=== PATIENT | female | born 1940 | race Caucasian/White ===

== ENCOUNTER 2019-11-23 14:56 | Inpatient (IN) | payer MEDICARE ==
[~2019-11-23] VITALS: Ht 167.6 cm; Wt 70.8 kg
[2019-11-23] MEDS ORDERED: ATOR20TA PO (15:17)
[2019-11-23] MEDS ORDERED: NICO-671 TP (15:17)
[2019-11-23] MEDS ORDERED: DIVA250T PO (15:17)
[2019-11-23] MEDS ORDERED: ACET-2154 PO (15:17)
[2019-11-23 15:35] LABS: BASOPHILS % (AUTO) 0.4 % (0.0-2.0); EOSINOPHILS # (AUTO) 0.3 K/uL (0.0-0.7); EOSINOPHILS % (AUTO) 3.2 % (0.0-7.0); HEMATOCRIT 36.5 % (31.2-41.9); HEMOGLOBIN 12.3 g/dL (10.9-14.3); LYMPHOCYTES # (AUTO) 2.4 K/uL (20.0-40.0); LYMPHOCYTES % (AUTO) 25.6 % (20.5-51.5); MEAN CORPUSCULAR HEMOGLOBIN 31.1 uug (24.7-32.8); MEAN CORPUSCULAR HGB CONC 34 g/dL (32.3-35.6); MEAN CORPUSCULAR VOLUME 91.9 fL (75.5-95.3); MONOCYTES # (AUTO) 0.5 K/uL (2.0-10.0); MONOCYTES % (AUTO) 5.6 % (0.0-11.0); NEUTROPHILS % (AUTO) 65.2 % (38.5-71.5); PLATELET COUNT (AUTO) 81 K/uL (179-408); RED BLOOD CELL COUNT(AUTO) 3.97 MIL/uL (3.63-4.92); WHITE BLOOD COUNT (AUTO) 9.2 K/uL (3.8-11.8)
[2019-11-23 15:41] LABS: *BILIRUBIN,URIN NEGATIVE (NEGATIVE); *BLOOD, URINE NEGATIVE (NEGATIVE); *CLARITY,URINE CLEAR (CLEAR); *COLOR,URINE YELLOW (YELLOW); *KETONES,URINE NEGATIVE (NEGATIVE); *UROBILINOGEN,URINE 0.2 E.U./dl (NORMAL); LEUKOCYTE ESTERASE ,URINE NEGATIVE (NEGATIVE); NITRITE, URINE NEGATIVE (NEGATIVE); UGLUCOSE NEGATIVE (NEGATIVE)
[2019-11-23 15:46] LABS: ALANINE AMINOTRANSFERASE 20 U/L (14-59); ALKALINE PHOSPHATASE 92 U/L (50-136); ASPARTATE AMINOTRANSFERASE 15 U/L (15-37); BILIRUBIN,DIRECT 0.1 mg/dL (0.0-0.2); BILIRUBIN,TOTAL 0.3 mg/dL (0.2-1.0); CARBON DIOXIDE 26 mmol/L (21-32); CHLORIDE 105 mmol/L (98-107); CREATININE 0.9 mg/dL (0.6-1.3); GLUCOSE 111 mg/dL (74-106); TOTAL PROTEIN, SERUM 7.4 g/dL (6.4-8.2); UREA NITROGEN, BLOOD 16 mg/dL (7-18)
[2019-11-23 15:48] LABS: ACETAMINOPHEN < 2.0 ug/mL (10-30)
[2019-11-23 15:49] LABS: ETHANOL < 3 MG/DL (0-0)
[2019-11-23 15:56] LABS: *AMPHETAMINE, URINE NEGATIVE (NEGATIVE); *BARBITURATE, URINE NEGATIVE (NEGATIVE); *CANNABINOID, URINE NEGATIVE (NEGATIVE); *COCCAINE, URINE NEGATIVE (NEGATIVE); *OPIATE, URINE NEGATIVE (NEGATIVE); *PHENCYCLIDINE SCREEN,URINE NEGATIVE (NEGATIVE)
--- NOTE | 2019-11-23 16:08 | NUR ---
Dr Burton medically cleared the pt.
--- NOTE | 2019-11-23 16:12 | NUR ---
Placed a call to CAMERA ENGINEER Logan Lopez.ETA 45 min.
[2019-11-23 16:15] LABS: BAND % (MANUAL) 2 % (0-10); EOSINOPHILS % (MANUAL) 1 % (0-8); LYMPHOCYTES % (MANUAL) 24 % (20-40); MONOCYTES % (MANUAL) 6 % (2-10); NEUTROPHILS % (MANUAL) 67 % (42-75)
[2019-11-23] MEDS ORDERED: QUET25TA PO ×3 (16:29)
--- NOTE | 2019-11-23 17:03 | NUR ---
Logan Lopez LCSW at the bedside for psych eval.
[2019-11-23] MEDS ORDERED: TEMAZEPAM 7.5 MG CAPSULE PO PRN (18:30)
[2019-11-23] MEDS ORDERED: MAG HYDROX/AL HYDROX/SIMETH 30 ML LIQUID UDC PO PRN (18:30)
[2019-11-23] MEDS ORDERED: MAGNESIUM HYDROXIDE 30 ML LIQUID UDC PO PRN (18:30)
[2019-11-23] MEDS ORDERED: TEMAZEPAM 15 MG CAPSULE PO PRN (19:30)
[2019-11-23] MEDS: LORAZEPAM 1 MG TABLET PO PRN (19:37)
--- NOTE | 2019-11-23 21:00 | NUR ---
GPS: Admitted to unit earlier during day shift a 79yr.old female under the care of / in fair condition. Pt.is on a 72 hour hold for GD. Pt. was paranoid,suspicious,delusional and was unmanageable at her SNF that she was in not too long ago,per hold. Pt.presents herself as confused,disoriented,paranoid,delusional,unpredictable,anxious and agitated. Frequent re-direction and limit setting done by staff. Skin assessment/personal belongings list completed.Pt's rights and advisement given to pt. Unit rules explained. Safety emphasized. Ativan 1mg given for increased anxiety/agitation and was effective. Behavior monitoring continues.
[2019-11-23 21:58] VITALS: BP 133/79
[2019-11-24] MEDS: LORAZEPAM 1 MG TABLET PO PRN (02:32)
[2019-11-24 07:30] VITALS: BP 132/70
[2019-11-24 08:20] LABS: BILIRUBIN,TOTAL 0.3 mg/dL (0.2-1.0); CREATININE 0.8 mg/dL (0.6-1.3); POTASSIUM 4.2 mmol/L (3.5-5.1); TOTAL PROTEIN, SERUM 7.5 g/dL (6.4-8.2)
[2019-11-24] MEDS: NICOTINE 7 MG/24HR PATCH TD SCH ×2 (09:00→13:22)
--- NOTE | 2019-11-24 10:39 | NUR ---
Social Work/Firearms Report (DOJ): Formula Bottler completed and submitted a DPJ firearms report for 5150 grave disability certification. A copy of report has been placed in patient chart.
--- NOTE | 2019-11-24 10:39 | NUR ---
Social Work/Initial Discharge Plan: Patient currently resides at [facility] [address] [place] [phone] and will return upon discharge. Seasonal Sales Associate will continue to work with patient and MD to ensure a safe and proper discharge plan.
--- NOTE | 2019-11-24 10:40 | NUR ---
Social Work/APS Contact: quality worker spoke with Trinh Salas APS social media developer ([phone]). Trinh provided collateral information regarding patient's history and recent current events that led to her hospitalization. Trinh stated that she has been assigned to the patient for a while and has a pending referral for conservatorship from [facility] ([phone]). Patient has a court hearing for this proceeding on December 03, 2019. Trinh stated that prior to [facility] the patient was living on her own in a Mobile Home where she was unable to provide care for herself and multiple emergency calls were in place which ultimately led to her not being able to continue to live independently and needing a group home placement.
[2019-11-24 16:02] VITALS: BP 126/80
[2019-11-24] MEDS: DIVALPROEX 250 MG TABLET.DR PO SCH (17:31)
[2019-11-24] MEDS: QUETIAPINE FUMARATE 25 MG TABLET PO SCH (17:32)
[2019-11-24 20:20] VITALS: BP 136/78
[2019-11-24] MEDS: QUETIAPINE FUMARATE 100 MG TABLET PO SCH (21:49)
[2019-11-25 07:30] VITALS: BP 138/75
[2019-11-25] MEDS: QUETIAPINE FUMARATE 25 MG TABLET PO SCH ×2 (08:20→17:11)
[2019-11-25] MEDS: DIVALPROEX 250 MG TABLET.DR PO SCH ×2 (08:20→17:11)
[2019-11-25] MEDS: NICOTINE 7 MG/24HR PATCH TD SCH (08:24)
[2019-11-25 16:00] VITALS: BP 119/80
[2019-11-25] MEDS: LORAZEPAM 1 MG TABLET PO PRN (17:11)
--- NOTE | 2019-11-25 17:16 | NUR ---
Patient is intrusive, poor boundaries, and frequently going into other patient's rooms. Patient is anxious, restless, and agitated. Patient provided with redirection and reality orientation multiple times and is argumentative with staff. Patient provided with PO PRN Ativan. Educated about impulse control and how to appropriately communicate her needs to staff.
[2019-11-25 20:00] VITALS: BP 124/73
[2019-11-25] MEDS: QUETIAPINE FUMARATE 100 MG TABLET PO SCH (21:01)
[2019-11-26 07:30] VITALS: BP 97/76
[2019-11-26] MEDS: DIVALPROEX 250 MG TABLET.DR PO SCH ×2 (08:05→17:04)
[2019-11-26] MEDS: LORAZEPAM 1 MG TABLET PO PRN ×2 (08:06→17:04)
[2019-11-26] MEDS: NICOTINE 7 MG/24HR PATCH TD SCH (08:06)
[2019-11-26] MEDS: QUETIAPINE FUMARATE 25 MG TABLET PO SCH ×2 (08:06→17:04)
[2019-11-26 16:59] VITALS: BP 118/66
[2019-11-26 20:00] VITALS: BP 123/75
[2019-11-26] MEDS: QUETIAPINE FUMARATE 100 MG TABLET PO SCH (20:11)
[2019-11-26] MEDS: ATORVASTATIN 20 MG TABLET PO SCH (20:11)
[2019-11-27] MEDS: LORAZEPAM 1 MG TABLET PO PRN (04:30)
[2019-11-27 07:30] VITALS: BP 116/51
[2019-11-27] MEDS: QUETIAPINE FUMARATE 25 MG TABLET PO SCH ×2 (10:42→17:22)
[2019-11-27] MEDS: DIVALPROEX 250 MG TABLET.DR PO SCH ×2 (10:42→17:22)
[2019-11-27] MEDS: NICOTINE 7 MG/24HR PATCH TD SCH (10:45)
[2019-11-27 17:22] VITALS: BP 116/83
[2019-11-27 20:12] VITALS: BP 130/80
[2019-11-27] MEDS: ATORVASTATIN 20 MG TABLET PO SCH (20:32)
[2019-11-27] MEDS: QUETIAPINE FUMARATE 100 MG TABLET PO SCH (20:32)
[2019-11-28 09:20] VITALS: BP 118/67
[2019-11-28] MEDS: NICOTINE 7 MG/24HR PATCH TD SCH (09:50)
[2019-11-28] MEDS: DIVALPROEX 250 MG TABLET.DR PO SCH ×2 (09:50→17:44)
[2019-11-28] MEDS: QUETIAPINE FUMARATE 25 MG TABLET PO SCH ×2 (09:50→17:44)
[2019-11-28 16:00] VITALS: BP 122/58
[2019-11-28 20:23] VITALS: BP 138/76
[2019-11-28] MEDS: QUETIAPINE FUMARATE 100 MG TABLET PO SCH (20:52)
[2019-11-28] MEDS: ATORVASTATIN 20 MG TABLET PO SCH (20:52)
[2019-11-29 07:30] VITALS: BP 110/59
[2019-11-29] MEDS: NICOTINE 7 MG/24HR PATCH TD SCH (08:35)
[2019-11-29] MEDS: QUETIAPINE FUMARATE 25 MG TABLET PO SCH ×2 (08:35→16:26)
[2019-11-29] MEDS: DIVALPROEX 250 MG TABLET.DR PO SCH ×2 (08:35→16:26)
--- NOTE | 2019-11-29 12:22 | NUR ---
Social Work Individual Therapy Note: Ore Crusher met with patient and provided individual supportive counseling. Patient shared she is feeling "okay", however patient is often times forgetful and is currently presenting with paranoid thought such as "are you going to hurt me", or unaware of why she is being asked questions. SW provided support and will continue to remain available to patient for ongoing support.
[2019-11-29 13:00] VITALS: BP 148/82
--- NOTE | 2019-11-29 13:12 | NUR ---
Social Work/Discharge Planning: KRANTHI faxed patient's referral packet to [facility] with attention to Bertram Brown admin coordinator for review. Addendum: 11/30/19 at 1129 by DARCY MAHMOOD Bertram stated that they do not accept psych patients at this facility and are unable to accept.
[2019-11-29] MEDS: ATORVASTATIN 20 MG TABLET PO SCH (20:44)
[2019-11-29] MEDS: QUETIAPINE FUMARATE 100 MG TABLET PO SCH (20:44)
[2019-11-29] MEDS: ACETAMINOPHEN 325 MG TABLET PO PRN (20:44)
--- NOTE | 2019-11-29 22:00 | NUR ---
received to care, highly visible on unit, pleasant upon approach. remains intrusive at times, but easy to redirect. compliant with medications, and staff direction. as of 0, she appears to be asleep. no distress noted. will continue to monitor closely.
--- NOTE | 2019-11-30 06:00 | NUR ---
slept 6.5 hours, total. continues to sleep. no distress noted.
[2019-11-30 07:39] VITALS: BP 104/68
[2019-11-30] MEDS: DIVALPROEX 250 MG TABLET.DR PO SCH ×2 (08:30→17:13)
[2019-11-30] MEDS: NICOTINE 7 MG/24HR PATCH TD SCH (08:30)
[2019-11-30] MEDS: QUETIAPINE FUMARATE 25 MG TABLET PO SCH ×2 (08:30→17:13)
--- NOTE | 2019-11-30 09:00 | NUR ---
Social Work/PC Hearing Notification: Muck Hauler unable to notify anyone of patient's probable cause hearing for today due to patient not having any supportive contacts.
--- NOTE | 2019-11-30 10:44 | NUR ---
Bertram stated that they do not accept psych patients at this facility and are unable to accept. Addendum: 11/30/19 at 1129 by DARCY MAHMOOD Incorrect placement of note.
--- NOTE | 2019-11-30 10:45 | NUR ---
Social Work/Discharge Planning: KRANTHI faxed patient's referral packet to [facility] . Attention to Alicia operations manager/coordinator, Awaiting on response. Addendum: 12/02/19 at 1519 by DARCY MAHMOOD KRANTHI left a message today for Alicia to inform whether or not patient is accepted to facility or not, awaiting a call back.
--- NOTE | 2019-11-30 15:43 | NUR ---
Social Work/Discharge Planning: KRANTHI faxed patient's referral packet to [facility] [address], [place] [address] ([phone]) fax# [phone]. Attention to Jordyn admissions representative, Awaiting on response. Addendum: 12/02/19 at 1518 by DARCY MAHMOOD Spoke with Luiza the barrel builder from [facility] who stated that they cannot accept the patient to their facility due to not having any open beds.
--- NOTE | 2019-11-30 15:46 | NUR ---
Social Work/Discharge Planning: KRANTHI faxed patient's referral packet to [address] [address] ([phone]) fax# [phone]. Attention to Lori warehouse logistics coordinator, Awaiting on response. Addendum: 12/02/19 at 1523 by DARCY MAHMOOD lead supply worker spoke with Lori today who stated that they did not receive my referral faxed yesterday. A new fax # was given ([phone]). This proposal writer faxed referral packet again. Awaiting response.
[2019-11-30 16:00] VITALS: BP 127/78
[2019-11-30 20:05] VITALS: BP 138/81
[2019-11-30] MEDS: ATORVASTATIN 20 MG TABLET PO SCH (20:21)
[2019-11-30] MEDS: QUETIAPINE FUMARATE 100 MG TABLET PO SCH (20:21)
[2019-11-30] MEDS: ACETAMINOPHEN 325 MG TABLET PO PRN (21:30)
[2019-12-01 07:30] VITALS: BP 127/76
[2019-12-01] MEDS: QUETIAPINE FUMARATE 25 MG TABLET PO SCH ×2 (08:51→16:56)
[2019-12-01] MEDS: DIVALPROEX 250 MG TABLET.DR PO SCH ×2 (08:51→16:55)
[2019-12-01] MEDS: NICOTINE 7 MG/24HR PATCH TD SCH (09:07)
[2019-12-01 16:00] VITALS: BP 130/75
[2019-12-01] MEDS: ATORVASTATIN 20 MG TABLET PO SCH (20:17)
[2019-12-01] MEDS ORDERED: QUETIAPINE FUMARATE 100 MG TABLET PO SCH (21:00)
[2019-12-01] MEDS ORDERED: QUETIAPINE FUMARATE 25 MG TABLET PO SCH (21:00)
[2019-12-01 21:24] VITALS: BP 133/78
[2019-12-02 07:30] VITALS: BP 132/75
[2019-12-02] MEDS: QUETIAPINE FUMARATE 25 MG TABLET PO SCH ×2 (08:21→16:55)
[2019-12-02] MEDS: DIVALPROEX 250 MG TABLET.DR PO SCH ×2 (08:21→16:56)
[2019-12-02] MEDS: NICOTINE 7 MG/24HR PATCH TD SCH (08:21)
--- NOTE | 2019-12-02 15:49 | NUR ---
Social Work/Discharge Planning: KRANTHI faxed patient's referral packet to [facility] [address] [place] [address] ([phone]) fax# [phone]. Attention to Jared crm coordinator. Spoke with Jared who stated that she will review the referral with their DON and let this bond writer know if they can accept this patient or not.
[2019-12-02 16:34] VITALS: BP 140/81
[2019-12-02] MEDS: QUETIAPINE FUMARATE 200 MG TABLET PO SCH (20:09)
[2019-12-02] MEDS: ATORVASTATIN 20 MG TABLET PO SCH (20:09)
[2019-12-02 20:34] VITALS: BP 139/85
[2019-12-02] MEDS ORDERED: QUETIAPINE FUMARATE 100 MG TABLET PO SCH (21:00)
--- NOTE | 2019-12-03 06:29 | NUR ---
Patient slept well for a total of 5.45 hours. No complaints were made. Compliant with medications. Assisted with needs. Kept safe and comfortable.
[2019-12-03 07:30] VITALS: BP 106/71
[2019-12-03] MEDS: DIVALPROEX 250 MG TABLET.DR PO SCH ×2 (09:22→18:20)
[2019-12-03] MEDS: QUETIAPINE FUMARATE 25 MG TABLET PO SCH (09:22)
[2019-12-03] MEDS: NICOTINE 7 MG/24HR PATCH TD SCH (09:23)
[2019-12-03 15:10] VITALS: BP 127/77
[2019-12-03] MEDS: ACETAMINOPHEN 325 MG TABLET PO PRN (19:55)
[2019-12-03] MEDS: LORAZEPAM 1 MG TABLET PO PRN (19:55)
[2019-12-03 20:29] VITALS: BP 141/76
[2019-12-03] MEDS: ATORVASTATIN 20 MG TABLET PO SCH (21:04)
[2019-12-03] MEDS: QUETIAPINE FUMARATE 200 MG TABLET PO SCH (21:04)
[2019-12-04 07:30] VITALS: BP 126/78
[2019-12-04] MEDS: QUETIAPINE FUMARATE 25 MG TABLET PO SCH (08:41)
[2019-12-04] MEDS: NICOTINE 7 MG/24HR PATCH TD SCH (08:41)
[2019-12-04] MEDS: DIVALPROEX 250 MG TABLET.DR PO SCH ×2 (08:41→16:15)
[2019-12-04 16:00] VITALS: BP 127/80
[2019-12-04] MEDS: ATORVASTATIN 20 MG TABLET PO SCH (20:11)
[2019-12-04] MEDS: QUETIAPINE FUMARATE 200 MG TABLET PO SCH (20:12)
[2019-12-04 21:07] VITALS: BP 121/78
[2019-12-05 07:30] VITALS: BP 117/69
[2019-12-05] MEDS: QUETIAPINE FUMARATE 25 MG TABLET PO SCH (08:24)
[2019-12-05] MEDS: DIVALPROEX 250 MG TABLET.DR PO SCH ×2 (08:24→16:37)
[2019-12-05] MEDS: NICOTINE 7 MG/24HR PATCH TD SCH (08:25)
[2019-12-05 16:52] VITALS: BP 123/75
[2019-12-05 20:00] VITALS: BP 139/88
[2019-12-05] MEDS: ATORVASTATIN 20 MG TABLET PO SCH (20:04)
[2019-12-05] MEDS: QUETIAPINE FUMARATE 200 MG TABLET PO SCH (20:04)
[2019-12-06 07:30] VITALS: BP 128/81
[2019-12-06] MEDS: DIVALPROEX 250 MG TABLET.DR PO SCH ×2 (08:06→17:22)
[2019-12-06] MEDS: NICOTINE 7 MG/24HR PATCH TD SCH (08:06)
[2019-12-06] MEDS: QUETIAPINE FUMARATE 25 MG TABLET PO SCH (08:06)
--- NOTE | 2019-12-06 14:55 | NUR ---
Social Work/Discharge Note: Patient will be discharged to [facility] facility to [facility] [place] [address] ([phone]) via Ambulance transportation. Patient will be provided ambulance transportation at 4pm. Senior Cost Estimator spoke with [place], [facility] ([phone]) who stated patient will be accepted at facility today. Patient is alert and oriented x2-3 and is not able to plan for self-care at this time but is willing to accept care provided for her at the facility. Patient denies suicidal or homicidal ideation. Patient is aware and agreeable with discharge plans. Patient presents with normal mood and congruent affect. Patient will continue to follow-up with Psychiatrist Dr. Baumann and Division Head Dr. You at [facility]. Patient has no family or supportive contacts to be notified at this time. Addendum: 12/06/19 at 1515 by DARCY MAHMOOD Change of facility: [facility] [address] [place] [address] ([phone]) [facility] is ready to accept the patient today.
[2019-12-06 15:16] VITALS: BP 133/74
--- NOTE | 2019-12-07 12:14 | NUR ---
Social Work Note: Growth Hacker received a call from Sarah ([phone]) from [facility] and stated that they have confirmed probate conservatorship of the patient. This typewriter assembler gave Sarah the patient's discharge information.
== END 2019-12-06 19:54 | DRG 885 ==
LOC: ER 14:56 → GPS 17:54
PROVIDERS: ADMIT Psychiatry & Neurology Psychiatry; ATTEND Student in an Organized Health Care Education/Training Program
DX: F29 Unspecified psychosis not due to a substance or known physiological condition (principal); D69.59 Other secondary thrombocytopenia; E78.5 Hyperlipidemia, unspecified; R26.81 Unsteadiness on feet; F17.200 Nicotine dependence, unspecified, uncomplicated; F03.90 Unspecified dementia, unspecified severity, without behavioral disturbance, psychotic disturbance, mood disturbance, and anxiety
CPT/HCPCS: 36415; 70030-TC; 80164; 80307; 85025; 93005; A4663; A9150; G0480; G0480-TC; J3490